=== PATIENT | female | born 1990 | race African-American/Black ===

== ENCOUNTER 2020-04-25 06:41 | Emergency (ER) | payer MEDICAID ==
[~2020-04-25] VITALS: Ht 160 cm; Wt 49.0 kg
[2020-04-25] MEDS ORDERED: ONDANSETRON HCL 4MG/2ML INJ IV STA (07:42)
[2020-04-25] MEDS ORDERED: MORPHINE SULFATE 4 MG/ML CPJ (NOT FOR IM USE) IV STA (07:42)
[2020-04-25] MEDS ORDERED: TETANUS, DIPHTHERIA, PERTUSSIS VAC/PF 0.5ML (>7YR OLD) IM ONE (07:45)
[2020-04-25] MEDS ORDERED: LIDOCAINE HCL/PF 1% 10 MG/ML 5ML VIAL IJ ONE (07:45)
[2020-04-25 08:07] LABS: BASOPHILS % 0.8 % (0.0-2.0); EOSINOPHILS % 0.6 % (0.0-5.0); HEMATOCRIT. 44.1 % (36.0-48.0); HEMOGLOBIN. 15.5 g/dL (12.0-16.0); LYMPHOCYTES % 8.7 % (20.0-50.0); MEAN CORPUSCULAR HEMOGLOBIN 31.3 pg (28.0-32.0); MEAN CORPUSCULAR VOLUME 89.3 fL (81.0-99.0); MONOCYTES % 10.1 % (2.0-8.0); NEUTROPHILS % 79.8 % (40.0-76.0); PLATELET 223 x1000/uL (130-400); RED BLOOD CELL COUNT 4.94 mill/uL (4.2-5.4); RED CELL DISTRIBUTION WIDTH 12.5 % (11.6-14.6)
[2020-04-25 08:14] LABS: CHLORIDE 102 mEq/L (98-107)
[2020-04-25 08:21] VITALS: BP 131/83
[2020-04-25 08:41] LABS: HCG SCREEN NEGATIVE
== END 2020-04-25 10:06 | disposition home or self-care (01) ==
LOC: ER 06:52
DX: S22.42XA Multiple fractures of ribs, left side, initial encounter for closed fracture (principal); S01.81XA Laceration without foreign body of other part of head, initial encounter; Y08.89XA Assault by other specified means, initial encounter; Y93.89 Activity, other specified; Y92.89 Other specified places as the place of occurrence of the external cause; Y99.8 Other external cause status; F17.290 Nicotine dependence, other tobacco product, uncomplicated
CPT/HCPCS: 12011; 36415; 70450; 71260; 74177; 80053; 84703; 85025; 85610; 90471; 90715; 96374; 96375; 99285; J2270; J2405; J3490

== ENCOUNTER 2020-05-03 12:52 | Emergency (ER) | payer MEDICAID ==
[~2020-05-03] VITALS: Ht 162.6 cm; Wt 51.0 kg
[2020-05-03 14:30] VITALS: BP 108/67
== END 2020-05-03 14:37 | disposition home or self-care (01) ==
LOC: ER 13:14
DX: Z48.02 Encounter for removal of sutures (principal)
CPT/HCPCS: 99281

== ENCOUNTER 2020-05-21 00:31 | Emergency (ER) | payer MEDICAID, OTHER ==
[~2020-05-21] VITALS: Ht 162.6 cm; Wt 50.3 kg
[2020-05-21] MEDS ORDERED: IBUPROFEN 600MG TABLET PO ONE (01:00)
[2020-05-21 02:33] VITALS: BP 118/79
== END 2020-05-21 02:36 | disposition home or self-care (01) ==
LOC: ER 00:31
DX: S20.211A Contusion of right front wall of thorax, initial encounter (principal); S60.221A Contusion of right hand, initial encounter; S80.01XA Contusion of right knee, initial encounter; Z98.890 Other specified postprocedural states; Y04.0XXA Assault by unarmed brawl or fight, initial encounter; Y93.89 Activity, other specified; Y92.89 Other specified places as the place of occurrence of the external cause; Y99.8 Other external cause status
CPT/HCPCS: 71101; 73130; 73562; 81025; 99284